=== PATIENT | male | born 1985 | race Two or more races ===

== ENCOUNTER → 2024-05-08 | Outpatient (CLI) | payer OTHER, SELFPAY | END | disposition home or self-care (01) | LOC: SHCH 08:01 | PROVIDERS: ATTEND Student in an Organized Health Care Education/Training Program | DX: I08.0 Rheumatic disorders of both mitral and aortic valves (principal); R00.2 Palpitations; I50.83 High output heart failure; Z95.0 Presence of cardiac pacemaker | CPT/HCPCS: 93306 ==